=== PATIENT | male | born 1965 | race Caucasian/White ===

== ENCOUNTER → 2016-06-30 | Outpatient (CLI) | payer MEDICARE, OTHER ==
[~2016-06-30] MED LIST: CELLCEPT500 MG PO; FLEXERIL 10 MG10 MG PO; KEFLEX500 MG PO; MAGNESIUM100 MG PO; NORCO 7.5-3251 EACH PO; NORVASC 5 MG TAB5 MG PO; OXYCODONE HCL10 MG PO; PROGRAF5 MG PO; SODIUM BICARBO650 M1 PO; VITAMIN C 250250 MG PO
== END ==
LOC: OPSV2 08:15
PROVIDERS: Podiatrist Foot & Ankle Surgery
DX: Z01.812 Encounter for preprocedural laboratory examination (principal); S92.352A Displaced fracture of fifth metatarsal bone, left foot, initial encounter for closed fracture
CPT/HCPCS: 36415; 80048

== ENCOUNTER → 2016-07-14 | Day surgery (SDC) | payer MEDICARE ==
[2016-07-14 09:32] LABS: HEMOGLOBIN 11.5 gm/dl (14.0-17.5); RED BLOOD COUNT 3.99 M/UL (4.20-5.50); WHITE BLOOD COUNT 3.2 K/UL (4.5-11.0)
[2016-07-14 10:07] LABS: BUN/CREATININE RATIO 31 (0-10)
== END | disposition home or self-care (01) ==
LOC: OR 07-07 07:45
PROVIDERS: Podiatrist Foot & Ankle Surgery
PROC: 0QHM04Z Insertion of Internal Fixation Device into Left Tarsal, Open Approach (ICD-10-PCS; principal; 2016-07-14 08:45)
PROC: 0L8T0ZZ Division of Left Ankle Tendon, Open Approach (ICD-10-PCS; 2016-07-14 08:45)
PROC: 0SNG0ZZ Release Left Ankle Joint, Open Approach (ICD-10-PCS; 2016-07-14 08:45)
DX: S92.352A Displaced fracture of fifth metatarsal bone, left foot, initial encounter for closed fracture (principal); M24.572 Contracture, left ankle; M67.02 Short Achilles tendon (acquired), left ankle; I12.0 Hypertensive chronic kidney disease with stage 5 chronic kidney disease or end stage renal disease; N18.6 End stage renal disease; J44.9 Chronic obstructive pulmonary disease, unspecified; K21.9 Gastro-esophageal reflux disease without esophagitis; M19.90 Unspecified osteoarthritis, unspecified site; G89.29 Other chronic pain; Z94.0 Kidney transplant status; Z87.19 Personal history of other diseases of the digestive system; Z87.891 Personal history of nicotine dependence; Z82.49 Family history of ischemic heart disease and other diseases of the circulatory system; Z82.3 Family history of stroke; Z79.891 Long term (current) use of opiate analgesic; Z79.899 Other long term (current) drug therapy; W00.0XXA Fall on same level due to ice and snow, initial encounter
CPT/HCPCS: 36415; 73630; 76000; 80048; 85027; C1713; J0690; J2250; J2270; J2405; J2795; J3010; J3370; J7120; Q4125

== ENCOUNTER → 2021-11-29 | Outpatient (CLI) | payer MEDICARE | LOC: KOH-I 09:13 | DX: M79.672 Pain in left foot (principal) | CPT/HCPCS: 73630 ==